=== PATIENT | female | born 1975 | race Caucasian/White ===

== ENCOUNTER 2020-12-27 20:22 | Emergency (ER) | payer SELFPAY ==
[~2020-12-27] VITALS: Ht 165.1 cm; Wt 66.2 kg
[2020-12-27 20:34] VITALS: BP 123/70
--- NOTE | 2020-12-27 21:48 | NUR ---
Patient discharged to home in stable condition. Written and verbal after care instructions given. Patient verbalizes understanding of instruction.
== END 2020-12-27 21:48 | disposition home or self-care (01) ==
LOC: ER 20:22
DX: S13.4XXA Sprain of ligaments of cervical spine, initial encounter (principal); R11.0 Nausea; V49.49XA Driver injured in collision with other motor vehicles in traffic accident, initial encounter; Y93.89 Activity, other specified; Y92.488 Other paved roadways as the place of occurrence of the external cause; Y99.8 Other external cause status